=== PATIENT | female | born 2000 | race Caucasian/White ===

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

== ENCOUNTER 2022-03-05 11:29 | Emergency (ER) | payer OTHER ==
[2022-03-05] MEDS ORDERED: IBUPROFEN 800 MG TABLET PO STA (12:02)
--- NOTE | 2022-03-05 12:18 | ED Physician Documentation ---
History of Present Illness - Stated complaint Stated Complaint: HIGH FEVER - Chief complaint Chief Complaint: Fever - History obtained from History obtained from: Patient - History of Present Illness Timing: Yesterday Pain level max: 6 Pain level now: 5 - Additonal information Additional information: 21-year-old female with fever, body aches x2 days. T-max 104. Also complains of a headache and neck pain. Took Tylenol and is feeling better. Denies any possibility of . Mild congestion. Minimal cough. Denies any possibility of . No sore throat. Review of Systems Constitutional: reports: Fever, Chills, Myalgias GI: denies: Vomiting, Diarrhea : denies: Now EGA Skin: denies: Rash Musculoskeletal: denies: Back pain Neurologic: denies: Generalized weakness, Focal weakness, Numbness, Confused PD PAST MEDICAL HISTORY - Past Medical History Past Medical History: Yes Psych: Anxiety - Past Surgical History Past Surgical History: No - Present Medications Home Medications: Ambulatory Orders Medication Instructions Recorded Confirmed Escitalopram [Lexapro] 20 mg PO DAILY 03/05/22 03/05/22 busPIRone [Buspar] 10 mg PO DAILY 03/05/22 03/05/22 - Allergies Allergies/Adverse Reactions: Allergies Allergy/AdvReac Type Severity Reaction Status Date / Time No Known Drug Allergies Allergy Verified 03/05/22 11:37 - Social History Does the pt smoke?: No Smoking Status: Never smoker Does the pt drink ETOH?: No Does the pt have substance abuse?: No - Immunizations Immunizations are current?: Yes PD ED PE NORMAL - Vitals Vital signs reviewed: Yes - General General: Alert and oriented X 3, No acute distress, Well developed/nourished - HEENT HEENT: PERRL, Ears normal, Moist mucous membranes, Pharynx benign - Neck Neck: Supple, no meningeal sign, No adenopathy, Other (FROM, Negative Kernig and Brudzinski sign) - Cardiac Cardiac: RRR, Strong equal pulses - Respiratory Respiratory: No respiratory distress, Clear bilaterally - Abdomen Abdomen: Soft, Non tender, Non distended - Back Back: No CVA TTP - Derm Derm: Warm and dry, No rash - Extremities Extremities: No edema, No calf tenderness / cord - Neuro Neuro: Alert and oriented X 3 - Psych Psych: Normal mood, Normal affect Results - Vitals Vitals: Vital Signs - 24 hr 03/05/22 03/05/22 03/05/22 11:35 11:56 12:37 Temperature 37.9 C 37.2 C Heart Rate 114 H 112 H 100 Respiratory 16 16 20 Rate Blood Pressure 128/82 H 121/68 123/57 L O2 Saturation 100 99 100 Oxygen O2 Source Room air - Labs Labs: Laboratory Tests 03/05/22 03/05/22 11:43 11:43 Urine Color YELLOW Urine Clarity CLEAR Urine pH 6.0 Ur Specific [place] <=1.005 Urine Protein NEGATIVE Urine Glucose (UA) NEGATIVE Urine Ketones NEGATIVE Urine Occult Blood NEGATIVE Urine Nitrite NEGATIVE Urine Bilirubin NEGATIVE Urine Urobilinogen 0.2 (NORMAL) Ur Leukocyte Esterase NEGATIVE Ur Microscopic Review NOT INDICATED Urine Culture Comments NOT INDICATED Urine HCG, Qual NEGATIVE Influenza A (Rapid) POSITIVE H Influenza B (Rapid) Negative PD MEDICAL DECISION MAKING - ED course Complexity details: reviewed results, re-evaluated patient, considered differential, d/w patient, d/w family ED course: Patient is well-appearing, nontoxic. No hypoxia. No respiratory distress. Lungs are clear to auscultation bilaterally. Positive for influenza A. Discussed treatment with Tamiflu or Xofluza. Patient declines this. We will continue supportive care at home. She will return if she worsens. Patient and family counseled regarding signs and symptoms for which I believe and urgent re- evaluation would be necessary. Patient with good understanding of and agreement to plan and is comfortable going home at this time This document was made in part using voice recognition software. While efforts are made to proofread this document, sound alike and grammatical errors may occur. Departure - Departure Disposition: 01 Home, Self Care Clinical Impression: Influenza A Condition: Good Instructions: ED Flu Follow-Up: your,doctor as needed [Other] Comments: Please follow-up with your doctor as needed for further care. Please return if you worsen. Drink plenty of fluids and rest. You can use Motrin and/or Tylenol at home as needed for pain/fever. You have tested positive for influenza A today. Forms: Activity restrictions Discharge Date/Time: 03/05/22 12:42
[2022-03-05 12:19] LABS: BILIRUBIN,URINE NEGATIVE (NEGATIVE); GLUCOSE, URINE (UA) NEGATIVE (NEGATIVE); KETONES,URINE (UA) NEGATIVE (NEGATIVE); LEUKOCYTE ESTERASE, URINE NEGATIVE (NEGATIVE); NITRITE,URINE NEGATIVE (NEGATIVE); OCCULT BLOOD,URINE NEGATIVE (NEGATIVE); PROTEIN,URINE NEGATIVE (NEGATIVE); UROBILINOGEN,URINE 0.2 (NORMAL) E.U./dL (NORMAL)
[2022-03-05 12:27] LABS: CLARITY,URINE CLEAR (CLEAR); HCG UR QUAL NEGATIVE
[2022-03-05 12:40] VITALS: BP 123/57
== END 2022-03-05 12:42 | disposition home or self-care (01) ==
LOC: ED 11:29
DX: J10.1 Influenza due to other identified influenza virus with other respiratory manifestations (principal)
CPT/HCPCS: 81003; 81025; 87275; 87276; 99282; 99283; A9270; 81001; 87086

== ENCOUNTER 2022-06-10 14:16 | Outpatient (CLI) | payer OTHER | END 2022-06-10 23:59 | disposition home or self-care (01) | LOC: LAB.N 14:16 | PROVIDERS: ATTEND Family Medicine | DX: R39.15 Urgency of urination (principal) | CPT/HCPCS: 87086 ==

== ENCOUNTER 2023-06-06 09:15 | Outpatient (CLI) | payer OTHER ==
[2023-06-06 09:54] LABS: BASOPHILS % (AUTO) 0.7 %; EOSINOPHILS # (AUTO) 0.1 10^3/uL (0.0-0.7); EOSINOPHILS % (AUTO) 1.6 %; HCT - HEMATOCRIT 41.3 % (37.0-47.0); LYMPHOCYTES # (AUTO) 1.7 10^3/uL (1.5-3.5); LYMPHOCYTES % (AUTO) 39.2 %; MEAN CORPUSCULAR HEMOGLOBIN 32.2 pg (27.0-31.0); MEAN CORPUSCULAR HGB CONC 33.9 g/dL (32.0-36.0); MEAN CORPUSCULAR VOLUME 94.9 fL (81.0-99.0); MEAN PLATELET VOLUME 9.1 fL (7.9-10.8); MONOCYTES # (AUTO) 0.3 10^3/uL (0.0-1.0); MONOCYTES % (AUTO) 6.7 %; NEUTROPHILS # (AUTO) 2.3 10^3/uL (1.5-6.6); NEUTROPHILS % (AUTO) 51.6 %; PLT - PLATELET COUNT 217 10^3/uL (130-450); RED BLOOD COUNT 4.35 10^6/uL (4.20-5.40); RED CELL DISTRIBUTION WIDTH 11.9 % (12.0-15.0); WHITE BLOOD COUNT 4.4 x10^3/uL (4.8-10.8)
[2023-06-06 10:14] LABS: ALBUMIN 4.1 g/dL (3.2-5.5); ALBUMIN/GLOBULIN RATIO 1.5 (1.0-2.2); ALKALINE PHOSPHATASE 33 IU/L (42-121); ALT ALANINE AMINOTRANSFERASE 12 IU/L (10-60); AST ASPARTATE AMINOTRANSFERASE 17 IU/L (10-42); BILIRUBIN,TOTAL 0.7 mg/dL (0.2-1.0); BUN - BLOOD UREA NITROGEN 12 mg/dL (6-20); CALCIUM 9.5 mg/dL (8.5-10.3); CARBON DIOXIDE - CO2 29 mmol/L (21-32); CHLORIDE 104 mmol/L (101-111); CHOL/HDL RATIO 3.8 (<4.4); CHOLESTEROL 197 mg/dL; CREATININE 0.9 mg/dL (0.6-1.3); CRP - C-REACTIVE PROTEIN < 0.5 mg/dL (<0.5); GFR - MDRD 78 (>89); GLUCOSE 83 mg/dL (74-104); HDL CHOLESTEROL 52 mg/dL; LDL CHOLESTEROL,CALCULATED 127 mg/dL; LDL/HDL RATIO 2.4 (<4.4); SODIUM 138 mmol/L (135-145); TOTAL PROTEIN 6.9 g/dL (6.4-8.9); TRIGLYCERIDES 89 mg/dL (48-352); VLDL CHOLESTEROL 18 mg/dL
[2023-06-06 10:27] LABS: THYROID STIMULATING HORMONE 1.37 uIU/mL (0.34-5.60)
== END 2023-06-06 09:16 | disposition home or self-care (01) ==
LOC: LAB 09:15
PROVIDERS: ATTEND Physician Assistant
DX: R63.4 Abnormal weight loss (principal); Z13.9 Encounter for screening, unspecified
CPT/HCPCS: 36415; 80053; 80061; 83721; 84443; 85025; 85651; 86140

== ENCOUNTER 2023-06-24 08:00 | Outpatient (CLI) | payer OTHER ==
[2023-06-24 18:14] LABS: FECAL OCCULT BLOOD (FIT) NEGATIVE (NEGATIVE)
== END 2023-06-24 23:59 | disposition home or self-care (01) ==
LOC: LAB.R 08:00
PROVIDERS: ATTEND Physician Assistant
DX: R63.4 Abnormal weight loss (principal)
CPT/HCPCS: 82274

== ENCOUNTER 2023-08-27 18:47 | Emergency (ER) | payer OTHER ==
--- NOTE | 2023-08-27 19:37 | ED Physician Documentation ---
PD HPI MHE - Stated complaint Stated Complaint: MHE - Chief complaint Chief Complaint: MHE - History obtained from History obtained from: Patient - Additional information Additional information: 20-year-old female with history of anxiety presents for mental health evaluation. Patient states that for the last several months her emotions have been out of control and she does not know what to do. She was previously on buspirone and escitalopram, but stopped these last year because she did not feel like they were giving any benefit. She denies wanting to harm herself, but states that she really needs to just talk to someone. She does go to therapy and her therapist is aware of her worsening emotions. Review of Systems Constitutional: denies: Fever, Chills Cardiac: denies: Chest pain / pressure, Palpitations, Calf pain Respiratory: denies: Dyspnea, Cough, Wheezing GI: denies: Abdominal Pain, Nausea, Vomiting Neurologic: denies: Generalized weakness, Focal weakness, Numbness Psychiatric: reports: Depressed, Anxiety. denies: Suicidal, Homicidal, Hallucinations, Delusions, Insomnia PD PAST MEDICAL HISTORY - Past Medical History Psych: Anxiety - Past Surgical History Past Surgical History: No - Present Medications Home Medications: Ambulatory Orders Medication Instructions Recorded Confirmed hydrOXYzine pamoate [Hydroxyzine 50 mg PO TID PRN #30 cap 08/27/23 Pamoate] - Allergies Allergies/Adverse Reactions: Allergies Allergy/AdvReac Type Severity Reaction Status Date / Time No Known Drug Allergies Allergy Verified 08/27/23 19:04 - Social History Does the pt smoke?: No Smoking Status: Never smoker Does the pt drink ETOH?: No Does the pt have substance abuse?: No - Immunizations Immunizations are current?: Yes PD ED PE NORMAL - Vitals Vital signs reviewed: Yes - General General: Alert and oriented X 3, No acute distress, Well developed/nourished - Cardiac Cardiac: RRR, Strong equal pulses - Respiratory Respiratory: No respiratory distress, Clear bilaterally - Abdomen Abdomen: Soft, Non tender, Non distended - Derm Derm: Normal color, Warm and dry, No rash - Neuro Neuro: Alert and oriented X 3, 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, No motor deficit, Normal speech - Psych Psych: Normal mood, Normal affect Results - Vitals Vitals: Vital Signs - 24 hr 08/27/23 08/27/23 08/27/23 18:54 19:30 23:11 Temperature 36.6 C Heart Rate 79 76 68 Respiratory 18 16 Rate Blood Pressure 137/91 H 128/70 O2 Saturation 100 98 Oxygen O2 Source Room air - Labs Labs: Laboratory Tests 08/27/23 08/27/23 19:38 19:38 WBC 7.3 RBC 4.56 Hgb 14.2 Hct 42.8 MCV 93.9 MCH 31.1 H MCHC 33.2 RDW 11.9 L Plt Count 265 MPV 9.0 Neut # (Auto) 4.6 Lymph # (Auto) 2.0 [place] # (Auto) 0.6 Eos # (Auto) 0.1 Baso # (Auto) 0.0 Absolute Nucleated RBC 0.00 Nucleated RBC % 0.0 Sodium 138 Potassium 4.0 Chloride 104 Carbon Dioxide 27 Anion Gap 7.0 BUN 13 Creatinine 0.8 Estimated GFR (MDRD) 90 Glucose 96 Calcium 9.8 Total Bilirubin 0.5 AST 18 ALT 15 Alkaline Phosphatase 41 L Total Protein 7.2 Albumin 4.3 Globulin 2.9 Albumin/Globulin Ratio 1.5 Salicylates < 1.5 Acetaminophen 0.3 Ethyl Alcohol < 10.0 PD Medical Decision Making - ED course Complexity details: reviewed results, re-evaluated patient, considered differential, d/w patient ED course: Patient presenting for gradually worsening mental health over several months. Adamantly denying suicidal or homicidal ideations. Reports frustration with her primary care provider, who she states told her that they were not very familiar with antidepressants and she does not feel that the medications prescribed are very helpful. Telepsychiatry ordered for consult as patient states her primary concern is that she just wants to talk to someone about her symptoms. Patient medically cleared for telepsychiatry evaluation. Patient seen and evaluated by telepsychiatry, they recommend outpatient treatment, which is what the patient prefers. No medication recommendations at this time. Discussed with patient and mother at bedside, I will start the patient on a as needed hydroxyzine for anxiety, however initiation of an SSRI or SNRI needs to be through primary care. I did recommend that if the patient is having a hard time with her current provider she should follow-up with a different PCP Departure - Departure Disposition: 01 Home, Self Care Clinical Impression: Anxiety, Depression Condition: Stable Instructions: ED Depression Prescriptions: hydrOXYzine pamoate [Hydroxyzine Pamoate] 50 mg PO TID PRN #30 cap PRN Reason: Anxiety Comments: Follow-up with your therapist and your primary care doctor. I would recommend restarting medications for your symptoms, however your primary care doctor will need to closely monitor you if you start a new medication. Forms: PCP List Discharge Date/Time: 08/27/23 23:11
[2023-08-27 19:55] LABS: BASOPHILS % (AUTO) 0.4 %; EOSINOPHILS # (AUTO) 0.1 10^3/uL (0.0-0.7); EOSINOPHILS % (AUTO) 1.2 %; HCT - HEMATOCRIT 42.8 % (37.0-47.0); HGB - HEMOGLOBIN 14.2 g/dL (12.0-16.0); LYMPHOCYTES % (AUTO) 27.8 %; MEAN CORPUSCULAR HEMOGLOBIN 31.1 pg (27.0-31.0); MEAN CORPUSCULAR HGB CONC 33.2 g/dL (32.0-36.0); MEAN CORPUSCULAR VOLUME 93.9 fL (81.0-99.0); MONOCYTES # (AUTO) 0.6 10^3/uL (0.0-1.0); MONOCYTES % (AUTO) 7.6 %; NEUTROPHILS # (AUTO) 4.6 10^3/uL (1.5-6.6); NEUTROPHILS % (AUTO) 62.7 %; PLT - PLATELET COUNT 265 10^3/uL (130-450); RED BLOOD COUNT 4.56 10^6/uL (4.20-5.40); RED CELL DISTRIBUTION WIDTH 11.9 % (12.0-15.0); WHITE BLOOD COUNT 7.3 x10^3/uL (4.8-10.8)
[2023-08-27 20:16] LABS: ACETAMINOPHEN 0.3 ug/mL; ALBUMIN 4.3 g/dL (3.2-5.5); ALBUMIN/GLOBULIN RATIO 1.5 (1.0-2.2); ALKALINE PHOSPHATASE 41 IU/L (42-121); ALT ALANINE AMINOTRANSFERASE 15 IU/L (10-60); AST ASPARTATE AMINOTRANSFERASE 18 IU/L (10-42); BILIRUBIN,TOTAL 0.5 mg/dL (0.2-1.0); BUN - BLOOD UREA NITROGEN 13 mg/dL (6-20); CALCIUM 9.8 mg/dL (8.5-10.3); CARBON DIOXIDE - CO2 27 mmol/L (21-32); CHLORIDE 104 mmol/L (101-111); CREATININE 0.8 mg/dL (0.6-1.3); ETOH - ETHANOL < 10.0 mg/dL; GFR - MDRD 90 (>89); GLUCOSE 96 mg/dL (74-104); SODIUM 138 mmol/L (135-145); TOTAL PROTEIN 7.2 g/dL (6.4-8.9)
[2023-08-27 20:18] LABS: SALICYLATE < 1.5 mg/dL
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
[2023-08-27 23:15] VITALS: BP 128/70; O2SAT 98
== END 2023-08-27 23:11 | disposition home or self-care (01) ==
LOC: ED 18:47
DX: F41.9 Anxiety disorder, unspecified (principal); F32.A Depression, unspecified
CPT/HCPCS: 36415; 80053; 80143; 80179; 82077; 85025; 99284; G0427; Q3014

== ENCOUNTER 2023-09-28 14:53 | Outpatient (CLI) | payer OTHER | END 2023-09-28 14:54 | disposition home or self-care (01) | LOC: LAB 14:53 | PROVIDERS: ATTEND Physician Assistant | DX: Z11.1 Encounter for screening for respiratory tuberculosis (principal) | CPT/HCPCS: 81599 ==